=== PATIENT | female | born 1975 | race American Indian/Alaskan Native ===

== ENCOUNTER 2017-08-27 12:15 | Outpatient (CLI) | payer OTHER ==
--- NOTE | 2017-08-27 13:57 | XRay Report ---
LUMBOSACRAL SPINE, FIVE VIEWS: HISTORY: Low back pain. Views of the lumbosacral spine demonstrate normal bony alignment, vertebral height and interspace distances. Oblique views show patent foramina and normal apophyseal joint alignment. IMPRESSION: Lumbar spine within normal limits.
== END 2017-08-27 12:16 | disposition home or self-care (01) ==
LOC: XRAY 12:15
PROVIDERS: ATTEND Orthopaedic Surgery
DX: M54.5 Low back pain (principal)
CPT/HCPCS: 72110